=== PATIENT | female | born 1995 | race African-American/Black ===

== ENCOUNTER 2018-03-26 10:56 | Observation (INO) | payer MEDICAID ==
[2018-03-26] MEDS ORDERED: PREN1TAB78 MT (11:18)
== END 2018-03-26 13:10 | disposition home or self-care (01) ==
LOC: L&D 10:56
PROVIDERS: ADMIT Obstetrics & Gynecology; ATTEND Obstetrics & Gynecology
DX: O62.9 Abnormality of forces of labor, unspecified (principal); Z3A.37 37 weeks gestation of pregnancy
CPT/HCPCS: G0378 ×3

== ENCOUNTER 2018-03-27 13:48 | Inpatient (IN) | payer MEDICAID ==
[~2018-03-27] VITALS: Ht 167.6 cm; Wt 73.0 kg
[~2018-03-27 13:48] MED LIST: PREN1TAB78 MT
[2018-03-27] MEDS ORDERED: DEXT 5%/LR + PITOCIN 20UNITS/L 1,000 ML IV SCH (15:40)
[2018-03-27] MEDS ORDERED: CARBOPROST TROMETHAMINE 250 MCG/ML AMPUL IM PRN (15:45)
[2018-03-27] MEDS ORDERED: MISOPROSTOL 100MCG TABLET VG SCH (15:45)
[2018-03-27] MEDS ORDERED: BUTORPHANOL TARTRATE 2 MG/ML VIAL IV PRN (15:45)
[2018-03-27] MEDS ORDERED: METHYLERGONOVINE MALEATE 0.2 MG/ML IM PRN (15:45)
[2018-03-27] MEDS ORDERED: LIDOCAINE HCL 1% 20ML VIAL (Pyxis) INJ INFIL SCH (15:45)
[2018-03-27] MEDS ORDERED: NALOXONE HCL 0.4 MG/ML 1ML VIAL IM PRN (15:45)
[2018-03-27] MEDS ORDERED: AMPICILLIN 2,000 MG in SODIUM CHLORIDE 0.9% 100 ML IV SCH (16:00)
[2018-03-27] MEDS ORDERED: DEXT 5%/LR + PITOCIN 20UNITS/L 1,000 ML IV ONE (16:15)
[2018-03-27 16:20] LABS: BASOPHILS % 0.2 % (0.0-2.0); EOSINOPHILS % 0.9 % (0.0-5.0); HEMATOCRIT. 36.7 % (36.0-48.0); HEMOGLOBIN. 12.2 g/dL (12.0-16.0); LYMPHOCYTES % 15.3 % (20.0-50.0); MEAN CORPUSCULAR HEMOGLOBIN 28.8 pg (28.0-32.0); MEAN CORPUSCULAR VOLUME 86.3 fL (81.0-99.0); MONOCYTES % 7.5 % (2.0-8.0); NEUTROPHILS % 76.1 % (40.0-76.0); PLATELET 209 x1000/uL (130-400); RED BLOOD CELL COUNT 4.25 mill/uL (4.2-5.4); RED CELL DISTRIBUTION WIDTH 13.5 % (11.6-14.6)
[2018-03-27 16:25] LABS: PARTIAL THROMBOPLASTIN TIME 29.4 sec (23.4-31.0); PROTHROMBIN TIME 9.9 sec (9.1-11.1)
[2018-03-27 16:29] LABS: CLARITY URINE TURBID (CLEAR); COLOR URINE YELLOW (YELLOW); KETONES URINE NEGATIVE (NEGATIVE); LEUKOCYTE ESTERASE URINE NEGATIVE (NEGATIVE); NITRITE URINE NEGATIVE (NEGATIVE); OCCULT BLOOD URINE TRACE (NEGATIVE); PH URINE 7.5 (4.5-8.0); PROTEIN URINE TRACE (NEGATIVE); SPECIFIC GRAVITY URINE 1.016 (1.005-1.030)
[2018-03-27] MEDS: DEXT 5%/LACTATED RINGERS 1,000 ML IV SCH ×3 (16:30→18:10)
[2018-03-27 16:42] LABS: OPIATES URINE SCREEN NEGATIVE (NEGATIVE); PHENCYCLIDINE URINE SCREEN NEGATIVE (NEGATIVE)
[2018-03-27 16:43] LABS: *AMPHETAMINES SCREEN URINE NEGATIVE (NEGATIVE); *BARBITURATES SCREEN URINE NEGATIVE (NEGATIVE); *BENZODIAZEPINES SCREEN URINE NEGATIVE (NEGATIVE); *COCAINE SCREEN URINE NEGATIVE (NEGATIVE); METHADONE URINE SCREEN NEGATIVE (NEGATIVE)
[2018-03-27 16:44] LABS: CANNABINOID URINE SCREEN PRESUMTIVE POSITIVE (NEGATIVE)
[2018-03-27 16:59] LABS: HEPATITIS B SURFACE ANTIGEN NEGATIVE
[2018-03-27] MEDS ORDERED: FENTANYL CITRATE/PF 50MCG/ML 2ML VIAL ONE (17:43)
[2018-03-27] MEDS ORDERED: BUPIVACAINE HCL/NS/PF EPIDURAL 100 ML EP ONE (17:43)
[2018-03-27] MEDS ORDERED: BUPIVACAINE HCL/PF 0.25% (2.5MG/ML) 10ML ONE (17:45)
[2018-03-27] MEDS ORDERED: AMPICILLIN 1,000 MG in SODIUM CHLORIDE 0.9% 50 ML IV SCH (22:00)
[2018-03-28] MEDS ORDERED: DEXT 5%/LR + PITOCIN 20UNITS/L 1,000 ML IV SCH (00:16)
[2018-03-28] MEDS ORDERED: IBUPROFEN 400MG TABLET PO PRN (00:30)
[2018-03-28] MEDS ORDERED: ACETAMINOPHEN WITH CODEINE 300/30MG TABLET PO PRN (00:30)
[2018-03-28] MEDS ORDERED: IBUPROFEN 800MG TABLET PO PRN (00:30)
[2018-03-28] MEDS ORDERED: RHO(D) IMMUNE GLOBULIN 300 MCG/SYR IM PRN (00:30)
[2018-03-28] MEDS ORDERED: BENZOCAINE/LANOLIN/ALOE VERA SPRAY TOP PRN (00:30)
[2018-03-28 03:15] VITALS: BP 121/75
[2018-03-28 04:00] VITALS: BP 119/73
[2018-03-28 06:00] VITALS: BP 115/71
[2018-03-28 07:30] VITALS: BP 133/70
[2018-03-28 09:26] LABS: BASOPHILS % 0.1 % (0.0-2.0); EOSINOPHILS % 0.3 % (0.0-5.0); HEMOGLOBIN. 9.3 g/dL (12.0-16.0); LYMPHOCYTES % 11.1 % (20.0-50.0); MEAN CORPUSCULAR HEMOGLOBIN 28.8 pg (28.0-32.0); MEAN CORPUSCULAR VOLUME 86.7 fL (81.0-99.0); MEAN PLATELET VOLUME 9.4 fl (7.4-10.4); MONOCYTES % 6.4 % (2.0-8.0); NEUTROPHILS % 82.1 % (40.0-76.0); PLATELET 178 x1000/uL (130-400); RED BLOOD CELL COUNT 3.23 mill/uL (4.2-5.4); RED CELL DISTRIBUTION WIDTH 13.2 % (11.6-14.6)
[2018-03-28 16:00] VITALS: BP 129/66
[2018-03-28 19:45] VITALS: BP 121/76
[2018-03-29 05:30] VITALS: BP 107/61
[2018-04-01 09:05] LABS: CANNABINOID CONFIRMATION URINE Positive (.)
== END 2018-03-29 12:15 | disposition home or self-care (01) | DRG 560 ==
LOC: OBSVTOIN 13:48 → L&D 13:48 → 7EST PP/OB 03-28 02:48
PROVIDERS: ADMIT Obstetrics & Gynecology; ATTEND Obstetrics & Gynecology
PROC: 0W8NXZZ Division of Female Perineum, External Approach (ICD-10-PCS; 2018-03-27)
PROC: 3E0R3BZ Introduction of Anesthetic Agent into Spinal Canal, Percutaneous Approach (ICD-10-PCS; 2018-03-27)
PROC: 00HU33Z Insertion of Infusion Device into Spinal Canal, Percutaneous Approach (ICD-10-PCS; 2018-03-27)
PROC: 10D07Z6 Extraction of Products of Conception, Vacuum, Via Natural or Artificial Opening (ICD-10-PCS; principal; 2018-03-27 23:46)
DX: O99.344 Other mental disorders complicating childbirth (principal); F20.9 Schizophrenia, unspecified; Z37.0 Single live birth; Z3A.37 37 weeks gestation of pregnancy; Z82.49 Family history of ischemic heart disease and other diseases of the circulatory system; O66.5 Attempted application of vacuum extractor and forceps
CPT/HCPCS: 36415; 80305; 80349; 86592; 86703; 86762; 86850; 86900; 87340; 99281; G0378; J0290; J2590; J3010; J3490; J7050; J7121; A4315

== ENCOUNTER 2022-09-23 07:13 | Emergency (ER) | payer MEDICAID ==
[~2022-09-23] VITALS: Ht 170.2 cm; Wt 76.0 kg
[2022-09-23 07:23] VITALS: BP 116/82
[2022-09-23] MEDS ORDERED: ACETAMINOPHEN 325MG TABLET PO ONE (07:30)
[2022-09-23] MEDS ORDERED: T3 PO (08:35)
[2022-09-23] MEDS ORDERED: IBUP-2028 PO (08:35)
== END 2022-09-23 09:07 | disposition home or self-care (01) ==
LOC: ER 07:13
DX: M79.672 Pain in left foot (principal)
CPT/HCPCS: 73620; 99283; Z7610

== ENCOUNTER 2024-02-27 11:33 | Emergency (ER) | payer MEDICAID ==
[~2024-02-27] VITALS: Ht 165.1 cm; Wt 70.0 kg
[~2024-02-27 11:33] MED LIST changes: +IBUP-2028 PO; +T3 PO
[2024-02-27 11:37] VITALS: O2SAT 100
[2024-02-27] MEDS: FAMOTIDINE 20MG TABLET PO ONE (12:54)
[2024-02-27] MEDS: DIPHENHYDRAMINE 25MG CAPSULE PO ONE (12:54)
[2024-02-27] MEDS ORDERED: DIPH25TA62 MT (13:44)
[2024-02-27] MEDS: DEXAMETHASONE 4MG TABLET PO ONE (13:48)
[2024-02-27 13:50] VITALS: BP 121/70; PULSE 74; RESP 16; TEMP 36.83628; O2SAT 100
[2024-02-27] MEDS ORDERED: EPIN0.3P3 IM (15:46)
== END 2024-02-27 13:51 | disposition home or self-care (01) ==
LOC: ER 11:51
DX: T78.40XA Allergy, unspecified, initial encounter (principal); Z79.899 Other long term (current) drug therapy; X58.XXXA Exposure to other specified factors, initial encounter
CPT/HCPCS: 99284; J8540; Q0163

== ENCOUNTER 2025-05-12 12:42 | Emergency (ER) | payer MEDICAID ==
[~2025-05-12] VITALS: Ht 170.2 cm; Wt 55.0 kg
[~2025-05-12 12:42] MED LIST changes: +DIPH25TA62 MT; +EPIN0.3P3 IM
[2025-05-12 12:45] VITALS: TEMP 98.4; O2SAT 98
[2025-05-12] MEDS ORDERED: HYDROCODONE/ACETAMINOPHEN 5/325MG TABLET PO ONE (13:00)
[2025-05-12] MEDS ORDERED: ACET-3800 MT (13:44)
[2025-05-12] MEDS: KETOROLAC 30MG/ML VIAL IM ONE (13:57)
[2025-05-12 13:59] VITALS: BP 136/81; PULSE 91; RESP 16; O2SAT 100
== END 2025-05-12 14:01 | disposition home or self-care (01) ==
LOC: ER 12:42
DX: S09.8XXA Other specified injuries of head, initial encounter (principal); Z79.1 Long term (current) use of non-steroidal anti-inflammatories (NSAID); X58.XXXA Exposure to other specified factors, initial encounter; Y93.89 Activity, other specified; Y92.89 Other specified places as the place of occurrence of the external cause; Y99.8 Other external cause status
CPT/HCPCS: 81025; 99284